=== PATIENT | male | born 1985 | race Caucasian/White ===

== ENCOUNTER → 2024-06-02 10:11 | Outpatient (CLI) | payer OTHER, SELFPAY ==
[2024-06-02 11:02] LABS: Influenza A - CEPHEID Flu A NEGATIVE (NEGATIVE); Influenza B - CEPHEID Flu B NEGATIVE (NEGATIVE); Respiratory Syncytial Virus Negative (Negative)
[2024-06-02 11:04] LABS: COVID-19 CEPHEID 4-PLEX PCR Negative (Negative)
== END ==
PROVIDERS: Visit Provider Physician Assistant
DX: R05.1 Acute cough (principal)
CPT/HCPCS: 0241U

== ENCOUNTER → 2024-09-09 14:51 | Outpatient (CLI) | payer OTHER, SELFPAY ==
--- NOTE | 2024-09-09 14:53 | DI.ECHO.S_ITS ---
[facility] : : [address] : : [place] : : [id number] : : Phone: [phone] Echocardiogram Report + + :Name: SANDRA GALDAMEZ Study Date: 09/09/2024 Height: 66 in : :Hospital ReadingLocation: Weight: 170 lb : : Gender: Male BSA: 1.9 m2 : :: 1985 Age: 39 yrs BP: 136/90 mmHg: :Reason For Study: ATRIAL FIBRILLATION : :Ordering Physician: ISIDRO, : :ELVIN Performed By: Mor Munoz : :Referring: [id number] : + + Interpretation Summary The ejection fraction is estimated to be 55-60%. There are no focal wall motion abnormalities. The left atrium is mildly dilated. There is no significant valvular heart disease. Procedure: A two-dimensional transthoracic echocardiogram with color flow and Doppler was performed. The study quality was technically good. There is no prior echocardiogram noted for this patient. The patient was in normal sinus rhythm during the exam. Left Ventricle: The left ventricle is normal in size. Left ventricular wall thickness is mildly increased. There is no ventricular septal defect visualized. The ejection fraction is estimated to be 55-60%. There are no focal wall motion abnormalities. Diastolic parameters suggest probable normal left ventricular diastolic function and normal filling pressures. Right Ventricle: The right ventricle is normal in size and function. Atria: The left atrium is mildly dilated. Right atrial size is normal. There is no Doppler evidence for an atrial septal defect. Mitral Valve: The mitral valve is normal in structure and function. There is no mitral regurgitation noted. Aortic Valve: The aortic valve is trileaflet. The aortic valve opens well. No aortic regurgitation is present. Tricuspid Valve: The tricuspid valve leaflets are thin and pliable. There is a trace or physiologic amount of tricuspid regurgitation. Pulmonic Valve: The pulmonic valve leaflets are thin and pliable; valve motion is normal. There is no pulmonic valvular regurgitation. Great Vessels: The aortic root is normal size. The dimensions of the ascending aorta are normal. The pulmonary artery is normal size. The IVC is of normal diameter and collapses greater than 50% with a sniff. This suggests a low right atrial pressure of 3 mm Hg. Pericardium/ Pleura There is no pericardial effusion. There is no pleural effusion. MMode/2D Measurements & Calculations LVIDd: 4.6 cm LVOT diam: 2.0 cm LVIDs: 3.3 cm Ao root diam: 3.3 cm FS: 27.9 % EPSS: 0.32 cm IVSd: 0.93 cm LVPWd: 1.2 cm LV rooney. diameter/BSA (cm/m^2): 2.5 LV sys. diameter/BSA (cm/m^2): 1.8 LA A2 area: 20.4 cm2 RA long axis: 4.7 cm LA A4 area: 24.6 cm2 RA area: 14.4 cm2 LA length (vol): 5.6 cm RA vol: 37.2 ml LA vol: 76.8 ml RA : 19.9 ml/m2 LA vol index: 41.1 ml/m2 IVC diam: 2.0 cm RVD1 (basal): 3.6 cm RVD2 (mid): 3.4 cm TAPSE: 2.2 cm Doppler Measurements & Calculations Ao V2 max: 121.6 cm/sec LVOT Max Archie: 91.8 cm/sec Ao V2 mean: 95.7 cm/sec LV V1 max P.4 mmHg Ao max P.9 mmHg LV V1 VTI: 20.9 cm Ao mean P.9 mmHg RAO(I,D): 2.1 cm2 Ao V2 VTI: 29.5 cm RAO(V,D): 2.3 cm2 sev ratio: 0.71 RAO indexed to BSA (cm^2/m^2): 1.1 MV E max archie: 73.7 cm/sec PA V2 max: 83.2 cm/sec MV A max archie: 44.1 cm/sec PA V2 mean: 56.4 cm/sec MV E/A: 1.7 PA mean P.5 mmHg Med Peak E' Archie: 9.7 cm/sec PA pr(Accel): 15.6 mmHg E/E' med: 7.6 Lat Peak E' Archie: 15.0 cm/sec E/E' lat: 4.9 E/e' average: 6.2 MV dec time: 0.11 sec SV(LVOT): 62.9 ml Reading Physician:[id number] PM
[2024-09-09 16:31] LABS: Testosterone 200 ng/dL (132-813)
== END ==
PROVIDERS: Urology
DX: I48.91 Unspecified atrial fibrillation (principal); E29.1 Testicular hypofunction
CPT/HCPCS: 36415; 84403; 93306

== ENCOUNTER → 2024-09-26 07:37 | Outpatient (CLI) | payer OTHER, SELFPAY ==
[2024-09-26 08:49] LABS: Testosterone 288 ng/dL (132-813)
== END ==
PROVIDERS: Referring Provider Urology; Visit Provider Urology
DX: E29.1 Testicular hypofunction (principal)
CPT/HCPCS: 36415; 84403

== ENCOUNTER → 2024-12-03 07:25 | Outpatient (CLI) | payer OTHER, SELFPAY ==
[2024-12-03 07:49] LABS: Hematocrit 48.8 % (41-53)
[2024-12-03 08:25] LABS: Alanine Aminotransferase 30 IU/L (<50); Albumin 4.8 g/dL (3.5-5.0); Albumin Globulin Ratio 1.6 (1.0-2.8); Alkaline Phosphatase 50 U/L (38-126); Blood Urea Nitrogen 15 mg/dL (9-20); Calcium 9.5 mg/dL (8.4-10.2); Carbon Dioxide 24 mmol/L (22-32); Chloride 106 mmol/L (98-107); Estimated Glomerular Filt Rate > 60 mL/min (>60); Globulin 3.0 g/dL (1.7-4.1); Glucose 104 mg/dL (70-99); HEMOLYSIS < 15 (0-50); Potassium 4.4 mmol/L (3.4-5.1); Sodium 141 mmol/L (137-145); Total Protein 7.8 g/dL (6.3-8.2)
== END ==
PROVIDERS: Referring Provider Urology; Visit Provider Urology
DX: E29.1 Testicular hypofunction (principal)
CPT/HCPCS: 36415; 80053; 84403; 85014